=== PATIENT | female | born 2000 ===

== ENCOUNTER 2024-06-01 05:16 | Emergency (ER) | payer BC, SELFPAY ==
[2024-06-01 05:32] VITALS: BP 135/90
[2024-06-01 05:35] VITALS: BMI 17.5
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
[2024-06-01 06:25] LABS: % Basophils 0.7 % (0-2); % Eosinophils 0.5 % (0-6); % Immature Granulocytes 0.4 % (0-0.5); % Neutrophils 86.4 % (42.2-75.2); Absolute Basophils 0.1 10^3/uL (0-0.2); Absolute Eosinophils 0.1 10^3/uL (0-0.7); Absolute Lymphocytes 0.7 10^3/uL (1.2-3.4); Absolute Monocytes 0.7 10^3/uL (0.1-0.6); Absolute Neutrophils 9.3 10^3/uL (1.4-6.5); Hematocrit 40.7 % (37.0-47.0); Hemoglobin 13.8 g/dL (12.0-16.0); Mean Corp Hgb Conc. 33.9 g/dL (33.0-37.0); Mean Corpuscular Hgb 28.9 pg (27.0-31.0); Mean Corpuscular Volume 85.1 fL (81.0-99.0); Mean Platelet Volume 9.4 fL (7.4-10.4); Nucleated Red Blood Cells % 0 %; Platelet Count 331 10^3/uL (130-400); Red Blood Cell Count 4.78 10^6/uL (4.20-5.40); Red Cell Dist. Width 12.4 % (11.5-14.5); White Blood Cell Count 10.8 10^3/uL (4.8-10.8)
[2024-06-01 06:32] LABS: Blood Urea Nitrogen 9 mg/dl (7-17); Calcium 9.4 mg/dl (8.4-10.2); Carbon Dioxide 24 mmol/L (22-30); Chloride 102 mmol/L (98-107); Estimated Creatinine Clearance 104 ml/min; Glucose 121 mg/dl (70-99); Potassium 3.6 mmol/L (3.5-5.1); Sodium 140 mmol/L (135-145); eGFR > 60.00
[2024-06-01 06:40] LABS: Alcohol None Detected
[2024-06-01 07:00] VITALS: BP 115/81
--- NOTE | 2024-06-01 07:28 | EDRN ---
Maurisio from crisis currently at the pts bedside speaking with the pt
--- NOTE | 2024-06-01 12:03 | ED.CRISIS ---
ED Crisis Note
ED Crisis Note
Subjective:
No further issues morning
Assessment/Plan:
I spoke to crisis at 12 PM - The patient is going to be going to [place] at about 3 PM today.
[2024-06-01 19:07] VITALS: BP 142/109
--- NOTE | 2024-06-01 19:30 | ED.CRISIS ---
ED Crisis Note
ED Crisis Note
Subjective:
Feeling anxious and paranoid. Patient had a bed at [place] and was on her way when she tried to unstrapped herself in the back of the ambulance. Ambulance brought her back here. Patient does feel anxious on my assessment
Objective:
Awake and alert, no respiratory distress, is mildly anxious but does not want anything for now. Continue to monitor
Assessment/Plan:
Crisis working on placement. Patient is agreeable to go somewhere. May need some mild sedation
[2024-06-01] MEDS: ZYPREXA 5 MG PO (21:47)
--- NOTE | 2024-06-01 21:50 | ED.CRISIS ---
ED Crisis Note
ED Crisis Note
Subjective:
Reviewed with crisis has a bed at [place]-- looking for transport
Patient apparently en route to facility earlier became anxious and ambulance turnaround
Had a episode of anxiety paranoia here requiring chemical restraint
Objective:
Paranoia psychosis
Assessment/Plan:
Patient seen paranoid aggressive will complete 302
[2024-06-01] MEDS: ZYPREXA 5 MG IM (22:04)
[2024-06-02 09:28] VITALS: BP 125/60
--- NOTE | 2024-06-02 10:38 | EDRN ---
the pt was compliant with taking zyprexa PO, the pt is resting in stretcher in the lowest position, side rails up x2 call pabon within reach, HOB elevated, no s/s of distress, VS WNL, will continue to monitor the pt closely
--- NOTE | 2024-06-02 10:48 | EDRN ---
the pt is walking around the room with water in her hand, the pt is calm and cooperative, the pt denies needing anything at this time, the pt ate her breakfast, one to one observation maintained, mental health global security architect outside of the pts
room, will continue to monitor the pt closely
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
--- NOTE | 2024-06-02 12:04 | ED.CRISIS ---
ED Crisis Note
ED Crisis Note
Subjective:
24-year-old female here on a 302 for paranoia and aggression, suspected mixed bipolar with psychotic features.
Objective:
Patient is sitting in bed coloring with crayons, not in any distress. Vital signs stable. Was doing stretching and calisthenics earlier.
Assessment/Plan:
Patient here on 302 with bipolar disorder and psychotic features; psychiatry following. She is tentatively accepted at [facility] pending a 303 hearing tomorrow.
[2024-06-02 12:35] VITALS: BP 115/72
--- NOTE | 2024-06-02 12:36 | EDRN ---
the pt was compliant with this RN obtaining vital signs, the pt is calm and cooperative, the pt denies needing anything at this time, no s/s of distress, will continue to monitor the pt closely
[2024-06-02] MEDS: ABILIFY 2 MG PO (13:56)
[2024-06-02 14:06] VITALS: BP 146/96
[2024-06-02] MEDS: ATIVAN 0.5 MG PO (16:06)
[2024-06-02 16:17] VITALS: BMI 17.5
[2024-06-02 21:13] VITALS: BP 131/84
[2024-06-03] MEDS: ATIVAN 0.5 MG PO ×2 (02:23→11:40)
[2024-06-03 02:55] VITALS: BP 111/76
[2024-06-03] MEDS: ABILIFY 2 MG PO (08:18)
[2024-06-03 08:36] VITALS: BP 135/92
--- NOTE | 2024-06-03 12:18 | W.PN.UPDATE ---
Update Note
Progress Note Update
patient seen chart reviewed. bf remains at bedside and father appeared later. patient asked a number of questions about the 303 procedure and [facility]. she wanted to know what treatment there would consist of and i explained as best i could.
also directed her and bf to [place] website. patient agreed to fourteen days of in pt care and a 303 hearing was held during which she stipulated. transportation will be arranged for her this afternoon. reviewed medications. at some point an
antidepressant may be considered but no changes made in her medication today.
== END 2024-06-03 14:34 ==
LOC: EMR 05:16
PROVIDERS: Student in an Organized Health Care Education/Training Program; CONSULT PHYSICIAN Psychiatry & Neurology Psychiatry; EMERGENCY PHYSICIAN Emergency Medicine
DX: F22 Delusional disorders (principal); F20.9 Schizophrenia, unspecified; R41.0 Disorientation, unspecified; F31.89 Other bipolar disorder; F41.9 Anxiety disorder, unspecified; F32.A Depression, unspecified
CPT/HCPCS: 99285; 96372; 80048; 82077; 85025; J2358